=== PATIENT | female | born 1975 | race Caucasian/White ===

== ENCOUNTER 2016-08-23 20:44 | Emergency (ER) | payer OTHER ==
[2016-08-23 20:51] VITALS: RESP 18; TEMP 98.4
[2016-08-23] MEDS ORDERED: Sodium Chloride 0.9% 1,000 ML IV ONE (21:05)
[2016-08-23] MEDS ORDERED: DiphenhydrAMINE 50 mg/ml Inj IVP STA (21:06)
[2016-08-23] MEDS ORDERED: DiphenhydrAMINE 50 mg/ml Inj ONE ×2 (21:09→21:13)
[2016-08-23] MEDS ORDERED: Sodium Chloride 0.9% 0 ML ONE (21:13)
--- NOTE | 2016-08-23 21:30 | C.PDOC ---
History Of Present Illness A 41 y/o female [place] notes not knowing what caused it. Pt denies fever, chills, nausea, vomiting, SOB, dizziness, or any other complaints. Time Seen by Provider: 08/23/16 21:19 Chief Complaint (Nursing): Allergic Reaction History Per: Patient History/Exam Limitations: no limitations Onset/Duration Of Symptoms: Hrs Current Symptoms Are (Timing): Still Present Possible Cause: Unknown Severity: Mild Recent travel outside of the [place]: No Additional History Per: Patient Past Medical History Reviewed: Historical Data, Nursing Documentation, Vital Signs Vital Signs: Last Vital Signs Temp 98.4 F 08/23/16 20:50 Pulse 128 H 08/23/16 20:50 Resp 18 08/23/16 20:50 BP 127/86 08/23/16 20:50 Pulse Ox 96 08/23/16 22:02 Family History: States: Unknown Family Hx - Social History Hx Alcohol Use: No Hx Substance Use: No - Immunization History Hx Tetanus Toxoid Vaccination: Yes Hx Influenza Vaccination: Yes Review Of Systems Except As Marked, All Systems Reviewed And Found Negative. Constitutional: Negative for: Fever, Chills Respiratory: Negative for: Shortness of Breath Gastrointestinal: Negative for: Nausea, Vomiting Skin: Positive for: Rash (Generalized hives) Neurological: Negative for: Dizziness Physical Exam - Physical Exam Appears: Non-toxic, No Acute Distress Skin: Warm, Dry, Rash (generalized hives, urticaria ) Head: Atraumatic, Normacephalic Eye(s): bilateral: Normal Inspection Oral Mucosa: Moist Throat: Normal, No Exudate Chest: Symmetrical Cardiovascular: Rhythm Regular, No Murmur Respiratory: Normal Breath Sounds, No Rales, No Rhonchi, No Wheezing Gastrointestinal/Abdominal: Soft, No Tenderness, No Guarding, No Rebound Neurological/Psych: Oriented x3, Normal Speech, Normal Cognition, Other (NO focal deficit) ED Course And Treatment O2 Sat by Pulse Oximetry: 96 (RA) Pulse Ox Interpretation: Normal Progress Note: Patient feel better, clearing of the urticarial rashes. Reevaluation Time: 22:02 Reassessment Condition: Improved Medical Decision Making Medical Decision Making: Impression: 89 y/o female c/o hives that occurred today Plans: -Benadryl -pepcid -SOLU-Medrol -IV fluids -Reassess Disposition Counseled Patient/Family Regarding: Diagnosis - Disposition Referrals: [facility] [Outside] Disposition: HOME/ ROUTINE Disposition Time: 21:57 Condition: IMPROVED Prescriptions: DiphenhydrAMINE [Benadryl] 50 mg PO Q6 #14 cap Methylprednisolone [Medrol Dose Pack (21 tabs)] 4 mg PO DAILY #21 mg Instructions: Urticaria (GEN), General Allergic Reaction (ED) - POA Present On Arrival: None - Clinical Impression Clinical Impression: Allergic urticaria - Scribe Statement The provider has reviewed the documentation as recorded by the Scribe Rickey lucio All medical record entries made by the Silvestreibe were at my direction and personally dictated by me. I have reviewed the chart and agree that the record accurately reflects my personal performance of the history, physical exam, medical decision making, and the department course for this patient. I have also personally directed, reviewed, and agree with the discharge instructions and disposition.
[2016-08-23 22:13] VITALS: BP 116/75; PULSE 111; O2SAT 97
== END 2016-08-23 22:13 | disposition home or self-care (01) ==
LOC: C.ER 20:44
DX: L50.0 Allergic urticaria (principal)
CPT/HCPCS: 96374; 96375; 99285; J1200; J2930; J7040